=== PATIENT | female | born 2000 | race Caucasian/White ===

== ENCOUNTER 2024-04-19 01:12 | Emergency (ER) | payer OTHER, SELFPAY ==
[2024-04-19 01:36] VITALS: BP 140/82; PULSE 97; RESP 16; TEMP 36.6; O2SAT 99; BMI 35.2
[2024-04-19 02:43] LABS: Basophils Absolute Auto 0.1 X10*3/uL (0.0-0.2); Basophils Percent Auto 0.3 % (0-2); Eosinophils Absolute Auto 0.1 X10*3/uL (0.0-0.4); Eosinophils Percent Auto 0.6 % (0-4); Hematocrit 39.5 % (37.0-47.0); Hemoglobin 13.5 g/dl (12.0-16.0); Imm Gran Abs Auto 0.09 X10*3/uL (0.00-0.03); Imm Gran Pct Auto 0.6 % (0.0-0.4); Lymphocytes Absolute Auto 2.3 X10*3/uL (1.2-4.9); Lymphocytes Percent Auto 14.2 % (20-40); MANUAL DIFF FLAG NO; Mean Corpuscular HGB Conc 34.2 g/dl (31.0-35.0); Mean Corpuscular Hemoglobin 31.5 pg (27.0-33.0); Mean Corpuscular Volume 92.1 fL (80.0-98.0); Mean Platelet Volume 11.1 fL (9.4-12.3); Monocytes Absolute Auto 0.6 X10*3/uL (0.1-1.2); Neutrophils Absolute Auto 12.8 x10*3/uL (2.0-8.3); Neutrophils Percent Auto 80.3 % (45-73); Platelet Count 238 X10*3/uL (160-400); Red Blood Count 4.29 X10*6/uL (4.20-5.50); Red Cell Distribution Width 12.8 % (11.0-16.0); White Blood Count 15.9 X10*3/uL (4.8-10.8)
[2024-04-19 02:44] LABS: Appearance Urine Clear; Color Urine Yellow; Glucose Urine UA Negative (Negative); Leukocyte Esterase Urine Trace (Negative); Nitrite Urine Negative (Negative); PH 6.5 (5.0-9.0); Specific Gravity - Urine 1.025 (1.005-1.025); UMIC TRIGGER UACC YES; Urine Blood Negative (Negative); Urine Ketones Trace mg/dL (Negative); Urine Protein Negative (Neg-Trace)
--- NOTE | 2024-04-19 02:51 | ED.GENADULT ---
HPI - General Adult General Chief complaint: Nausea/Vomiting/Diarrhea Stated complaint: gen med Time Seen by Provider: 04/19/24 01:53 Source: patient Mode of arrival: ambulatory History of Present Illness ED Provider: Dr Trinidad [facility] narrative: This is a 24-year-old female, , 5 months, uncomplicated thus far, presents with having a flush of heat as well as a headache while at work, denies any double vision/blurred vision, denies any nausea or vomiting, denies any right upper quadrant discomfort or urinary symptoms. Denies lower abdominal cramping/loss of fluid/vaginal bleeding and states that she has continued to feel good movement. Related Data Allergies Allergy/AdvReac Type Severity Reaction Status Date / Time No Known Allergies Allergy Verified 04/19/24 01:38 Review of Systems Review of Systems: Pertinent positives and negatives as stated in HPI [facility] Past Medical History Source: nursing notes reviewed Social History Social History Advance Directives: No Advance Directives Information Provided: No Do you have a plan to hurt others: No Plan Physical Exam ED Vital Signs: Vital Signs - 24 hr 04/19/24 01:36 04/19/24 04:29 Temperature 97.9 F Pulse Rate 97 94 Respiratory Rate 16 18 Blood Pressure 140/82 H 99/61 Pulse Oximetry 99 94 Oxygen Delivery Method Room Air Room Air BMI result Body Mass Index 35.2 VITAL SIGNS: Reviewed. GENERAL: Well developed, well nourished, in no acute distress. HEAD: Normocephalic/atraumatic EYES: PERRLA, EOMI EARS: Ext canals without abnormality NOSE: Nares patent bilateral OROPHARYNX: no oral lesions noted, posterior pharynx clear NECK: Supple, no adenopathy LUNGS: Normal breath sounds. No adventitious sounds or accessory muscle use. SpO2<99> CARDIOVASCULAR: Regular rate and rhythm without noted murmurs, no JVD or lower extremity edema. ABDOMEN: Soft, gravid, non-tender, non-distended with bowel sounds. MUSCULOSKELETAL: No tenderness, deformities, or effusions noted on gross inspection. EXTREMITIES: No cyanosis, clubbing or edema. SKIN: Inspection of the skin reveals no rashes NEUROLOGIC: Alert and oriented x 4. Strength and sensation to light touch were grossly intact x 4. Medications Administered Discontinued Medications Generic Name Dose Route Start Last Admin Trade Name Alix PRN Reason Stop Dose Admin Acetaminophen 975 mg 04/19/24 02:02 04/19/24 03:17 Acetaminophen 325 Mg Tablet PO 04/19/24 02:03 975 mg ONCE ONE Administration Medical Decision Making Medical Decision Making [facility] Narrative: 24-year-old female with history and clinical presentation, DDX: low clinical suspicion for HELLP/hypertension of /and suspect instead may be urinary tract infection or viral illness. Patient saw her provider proximally 1 week ago. Will give patient Tylenol for headache. I reviewed all investigations and hematologic indices are significant for leukocytosis as well as a left shift but no anemia or thrombocytopenia. Chemistry indices are negative for RYDER/electrolyte or liver enzyme derangements. Urinalysis is demonstrates trace leukocyte esterase with the presence of bacteria although borderline clean sample. Viral testing is negative for COVID-19/influenza. Suspect the leukocytosis may be secondary to , patient is afebrile, does not have any abdominal pain, no new cough, borderline results for urinalysis but denies any urine symptoms. Viral testing is negative. On re-evaluation patient is feeling much better after the Tylenol, suspect a component of dehydration and instructed patient on increasing oral hydration. Differential Diagnosis Differential Diagnoses: The differential diagnosis associated with the presentation includes Please see the discussion above Admission/Observation Consideration of admission/observation: Escalation of care including admission/observation considered Please see the discussion above Lab Data [facility] Lab Attestation statement: I reviewed the patient's lab results. Please see the discussion above 04/19/24 02:35 04/19/24 02:35 Labs: Lab Results 04/19/24 Range/Units 02:35 WBC 15.9 H (4.8-10.8) X10*3/uL RBC 4.29 (4.20-5.50) X10*6/uL Hgb 13.5 (12.0-16.0) g/dl Hct 39.5 (37.0-47.0) % MCV 92.1 (80.0-98.0) fL MCH 31.5 (27.0-33.0) pg MCHC 34.2 (31.0-35.0) g/dl RDW 12.8 (11.0-16.0) % Plt Count 238 (160-400) X10*3/uL MPV 11.1 (9.4-12.3) fL Immature Gran % (Auto) 0.6 H (0.0-0.4) % Neut % (Auto) 80.3 H (45-73) % Lymph % (Auto) 14.2 L (20-40) % [place] % (Auto) 4.0 (2-11) % Eos % (Auto) 0.6 (0-4) % Baso % (Auto) 0.3 (0-2) % Lymph # (Auto) 2.3 (1.2-4.9) X10*3/uL [place] # (Auto) 0.6 (0.1-1.2) X10*3/uL Eos # (Auto) 0.1 (0.0-0.4) X10*3/uL Baso # (Auto) 0.1 (0.0-0.2) X10*3/uL Abs Immat Gran (auto) 0.09 H (0.00-0.03) X10*3/uL Absolute Neuts (auto) 12.8 H (2.0-8.3) x10*3/uL Absolute Nucleated RBC 0.000 (0.0-0.012) X10*3/uL Nucleated RBC % (auto) 0.0 (0.0-0.2) /100WBC Sodium 136 (135-145) mmol/L Potassium 4.1 (3.3-5.1) mmol/L Chloride 104 (96-108) mmol/L Carbon Dioxide 24 (22-29) mmol/L Anion Gap 12 (12-20) BUN 11 (9-16) mg/dL Creatinine 0.68 (0.5-1.4) mg/dL Estim Creat Clear Calc 122.8 Estimated GFR > 60 Random Glucose 73 (60-115) mg/dL Calcium 9.5 (8.4-10.2) mg/dL Total Bilirubin 0.3 (0.0-1.0) mg/dL AST 13 (5-31) U/L ALT 23 (0-31) U/L Alkaline Phosphatase 81 (39-117) U/L Total Protein 6.9 (6.5-8.0) g/dL Albumin 3.5 (3.5-5.0) g/dL Urine Color Yellow Urine Appearance Clear Urine pH 6.5 (5.0-9.0) Ur Specific [place] 1.025 (1.005-1.025) Urine Protein Negative (Neg-Trace) mg/dL Urine Glucose (UA) Negative (Negative) mg/dL Urine Ketones Trace (Negative) mg/dL Urine Blood Negative (Negative) Urine Nitrite Negative (Negative) Ur Leukocyte Esterase Trace H (Negative) Urine RBC 0-2 (0-2) /HPF Urine WBC 0-5 (0-5) /HPF Ur Squamous Epith Cells 3-5 (0-2) /HPF Urine Bacteria 2+ (None Seen) Hyaline Casts 0-2 (0-2) /LPF COVID-19 (JESSE) Negative (Negative) COVID-19 Clin Com See Note Influenza Type A (GABRIELA) Negative (Negative) Influenza Type B (GABRIELA) Negative (Negative) Influenza A & B Note See Note Chronic Conditions Patient?s care impacted by: Other Critical Care Time Critical Care Time Critical Care Time: Yes Total Critical Care Time: 45 Attestation: I personally attest to this time spent taking care of the patient. Discharge Plan Discharge Clinical Impression: Dizziness, Patient Disposition: Home, Self-Care Instructions: Lightheadedness (ED), (ED) Additional Instructions: Continue to stay well hydrated especially throughout the warmer months that are coming up. Do not hesitate to return to the emergency room for any worsening of your symptoms. Print Language: Kyr[place]z
[2024-04-19 02:58] LABS: COVID-19 Test Negative (Negative); IDNOW Serial# 08D9AD1C; IDNOW Serial# 152EDE1D; Influenza A Negative (Negative); Influenza B2 Negative (Negative)
[2024-04-19 03:00] LABS: Alanine Aminotransferase 23 U/L (0-31); Albumin Level 3.5 g/dL (3.5-5.0); Alkaline Phosphatase 81 U/L (39-117); Anion Gap 12 (12-20); Aspartate Amino Transferase 13 U/L (5-31); Bilirubin Total 0.3 mg/dL (0.0-1.0); Blood Urea Nitrogen 11 mg/dL (9-16); Calcium 9.5 mg/dL (8.4-10.2); Carbon Dioxide 24 mmol/L (22-29); Chloride 104 mmol/L (96-108); Creatinine Clr Calc Pharmacy 122.8; Estimated Glomerular Filt Rate > 60; Glucose Random 73 mg/dL (60-115); Potassium 4.1 mmol/L (3.3-5.1); Sodium 136 mmol/L (135-145); Total Protein 6.9 g/dL (6.5-8.0)
[2024-04-19 03:06] LABS: Bacteria Urine 2+ (None Seen); Hyaline Casts Urine 0-2 /LPF (0-2); RBC Urine 0-2 /HPF (0-2); WBC Urine 0-5 /HPF (0-5)
[2024-04-19] MEDS: Acetaminophen 325 MG TABLET 975 MG PO (03:17)
[2024-04-19 04:29] VITALS: BP 99/61; PULSE 94; RESP 18; O2SAT 94
[2024-04-19 06:34] VITALS: BP 99/61; PULSE 94; RESP 18; TEMP 36.6; O2SAT 94
== END 2024-04-19 06:10 | disposition home or self-care (01) ==
PROVIDERS: Emergency Provider Student in an Organized Health Care Education/Training Program
DX: O26.892 Other specified pregnancy related conditions, second trimester (principal); R42 Dizziness and giddiness; Z3A.00 Weeks of gestation of pregnancy not specified; Z11.52 Encounter for screening for COVID-19
CPT/HCPCS: 80053; 81001; 85025; 87502; 87635; 99283; 99284

== ENCOUNTER 2024-06-23 05:19 | Emergency (ER) | payer OTHER, SELFPAY ==
--- NOTE | ~2024-06-23 | US_ITS ---
EXAMINATION: US ABDOMEN LIMITED CLINICAL INFORMATION: Right upper quadrant pain. COMPARISON: None available. TECHNIQUE: Real-time imaging of the right upper quadrant abdominal viscera. FINDINGS: PANCREAS: The visualized portions of the pancreas are unremarkable. The tail of the pancreas is obscured by bowel gas. LIVER: Normal. The liver is normal in size. The liver contour is normal. Parenchymal echogenicity is normal. No focal hepatic lesion. There is no intrahepatic biliary duct dilatation seen. GALLBLADDER: Normal. The gallbladder is physiologically distended without evidence of stones, sludge, polyps, wall thickening or pericholecystic fluid. COMMON BILE DUCT: Normal in caliber measuring 0.3 cm in diameter. RIGHT KIDNEY: Normal. No hydronephrosis. No renal calculi or focal parenchymal lesions. The kidney measures 12 cm in maximum dimension. FREE FLUID: None. US/US abdomen limited IMPRESSION: Unremarkable right upper quadrant ultrasound.
[2024-06-23 05:23] VITALS: BP 124/71; PULSE 96; RESP 16; TEMP 36.5; O2SAT 98; BMI 44.4
--- NOTE | 2024-06-23 05:50 | ED.ABDPAIN ---
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 noticed cramping pain in upper abdomen which is diffuse more on the right side intermittent lasting for 2- 3 minutes coming almost every 10-15 minutes no vaginal bleed or discharge also has some nausea no urinary symptoms Related Data Allergies Allergy/AdvReac Type Severity Reaction Status Date / Time No Known Allergies Allergy Verified 06/23/24 05:27 Review of Systems Review of Systems Yes all other systems are reviewed and are negative [facility] Social History Social History Alcohol intake: never Smoked in Last 30 Days: No Use of substances other than those prescribed or required for medical reasons: No Advance Directives: No Advance Directives Information Provided: Yes Do you have a plan to hurt others: No Plan Patient : Yes Physical Exam ED Vital Signs: Vital Signs - 24 hr 06/23/24 05:23 06/23/24 06:20 06/23/24 07:19 Temperature 97.7 F 97.6 F Pulse Rate 96 85 88 Respiratory Rate 16 20 18 Blood Pressure 124/71 113/72 119/67 Pulse Oximetry 98 95 98 Oxygen Delivery Method Room Air Room Air Room Air BMI result Body Mass Index 44.4 Appearance: Alert. Oriented X3. No acute distress. Eyes: PERRLA, No Nystagmus ENT: Pharynx normal. Oral Mucosa moist Neck: Normal inspection. Neck supple. CVS: Normal heart rate and rhythm. Pulses normal. Respiratory: No respiratory distress. Equal air entry bilateral, no wheezing/rales/rhonchi Abdomen: Soft gravid uterus right upper quadrant tenderness+ with slight guarding no rebound tenderness Bowel sounds are present, , no CVA tenderness heart tone 152 beats per minute Skin: Skin warm and dry. Normal skin color. Normal skin turgor. Extremities: No lower extremity edema. No calf tenderness Neuro: Oriented X 3. 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 Bedside ultrasound was done which showed IUP with good movements . Lab Data 06/23/24 06:42 06/23/24 06:42 Labs: Lab Results 06/23/24 Range/Units 06:42 WBC 13.0 H (4.8-10.8) X10*3/uL RBC 4.25 (4.20-5.50) X10*6/uL Hgb 13.8 (12.0-16.0) g/dl Hct 39.4 (37.0-47.0) % MCV 92.7 (80.0-98.0) fL MCH 32.5 (27.0-33.0) pg MCHC 35.0 (31.0-35.0) g/dl RDW 12.8 (11.0-16.0) % Plt Count 214 (160-400) X10*3/uL MPV 11.1 (9.4-12.3) fL Immature Gran % (Auto) 0.8 H (0.0-0.4) % Neut % (Auto) 75.8 H (45-73) % Lymph % (Auto) 17.3 L (20-40) % [place] % (Auto) 4.8 (2-11) % Eos % (Auto) 1.0 (0-4) % Baso % (Auto) 0.3 (0-2) % Lymph # (Auto) 2.3 (1.2-4.9) X10*3/uL [place] # (Auto) 0.6 (0.1-1.2) X10*3/uL Eos # (Auto) 0.1 (0.0-0.4) X10*3/uL Baso # (Auto) 0.0 (0.0-0.2) X10*3/uL Abs Immat Gran (auto) 0.11 H (0.00-0.03) X10*3/uL Absolute Neuts (auto) 9.9 H (2.0-8.3) x10*3/uL Absolute Nucleated RBC 0.000 (0.0-0.012) X10*3/uL Nucleated RBC % (auto) 0.0 (0.0-0.2) /100WBC Sodium 138 (135-145) mmol/L Potassium 4.2 (3.3-5.1) mmol/L Chloride 110 H (96-108) mmol/L Carbon Dioxide 16 L (22-29) mmol/L Anion Gap 16 (12-20) BUN 7 L (9-16) mg/dL Creatinine 0.59 (0.5-1.4) mg/dL Estim Creat Clear Calc 168.4 Estimated GFR > 60 Random Glucose 76 (60-115) mg/dL Calcium 9.2 (8.4-10.2) mg/dL Total Bilirubin 0.2 (0.0-1.0) mg/dL AST 15 (5-31) U/L ALT 13 (0-31) U/L Alkaline Phosphatase 112 (39-117) U/L Total Protein 6.8 (6.5-8.0) g/dL Albumin 3.2 L (3.5-5.0) g/dL Discharge Plan Discharge Clinical Impression: Third trimester Print Language: [place] Citizen
--- NOTE | 2024-06-23 05:58 | PC.NURSE ---
pt off unit in U/S
[2024-06-23 06:20] VITALS: BP 113/72; PULSE 85; RESP 20; TEMP 36.4; O2SAT 95
[2024-06-23 06:47] LABS: MANUAL DIFF FLAG NO
[2024-06-23 06:58] LABS: Basophils Percent Auto 0.3 % (0-2); Eosinophils Absolute Auto 0.1 X10*3/uL (0.0-0.4); Hematocrit 39.4 % (37.0-47.0); Hemoglobin 13.8 g/dl (12.0-16.0); Imm Gran Abs Auto 0.11 X10*3/uL (0.00-0.03); Imm Gran Pct Auto 0.8 % (0.0-0.4); Lymphocytes Absolute Auto 2.3 X10*3/uL (1.2-4.9); Lymphocytes Percent Auto 17.3 % (20-40); Mean Corpuscular Hemoglobin 32.5 pg (27.0-33.0); Mean Corpuscular Volume 92.7 fL (80.0-98.0); Mean Platelet Volume 11.1 fL (9.4-12.3); Monocytes Absolute Auto 0.6 X10*3/uL (0.1-1.2); Monocytes Percent Auto 4.8 % (2-11); Neutrophils Absolute Auto 9.9 x10*3/uL (2.0-8.3); Neutrophils Percent Auto 75.8 % (45-73); Platelet Count 214 X10*3/uL (160-400); Red Blood Count 4.25 X10*6/uL (4.20-5.50); Red Cell Distribution Width 12.8 % (11.0-16.0)
[2024-06-23 07:06] LABS: Alanine Aminotransferase 13 U/L (0-31); Albumin Level 3.2 g/dL (3.5-5.0); Alkaline Phosphatase 112 U/L (39-117); Anion Gap 16 (12-20); Aspartate Amino Transferase 15 U/L (5-31); Bilirubin Total 0.2 mg/dL (0.0-1.0); Blood Urea Nitrogen 7 mg/dL (9-16); Calcium 9.2 mg/dL (8.4-10.2); Carbon Dioxide 16 mmol/L (22-29); Chloride 110 mmol/L (96-108); Creatinine Clr Calc Pharmacy 168.4; Estimated Glomerular Filt Rate > 60; Glucose Random 76 mg/dL (60-115); Potassium 4.2 mmol/L (3.3-5.1); Sodium 138 mmol/L (135-145); Total Protein 6.8 g/dL (6.5-8.0)
[2024-06-23 07:19] VITALS: BP 119/67; PULSE 88; RESP 18; O2SAT 98
[2024-06-23] MEDS: 0.9 % Sodium Chloride 1,000 ML 999 ML IV (07:26)
[2024-06-23] MEDS: ondansetron HCL 4 MG/2 ML VIAL IVPUSH (07:45)
[2024-06-23 07:59] LABS: Appearance Urine Clear; Color Urine Yellow; Glucose Urine UA Negative (Negative); Leukocyte Esterase Urine Negative (Negative); Nitrite Urine Negative (Negative); Specific Gravity - Urine >= 1.030 (1.005-1.025); Urine Blood Negative (Negative); Urine Ketones 15 mg/dL (Negative); Urine Protein Trace mg/dL (Neg-Trace)
[2024-06-23 09:10] VITALS: BP 108/61; PULSE 90; RESP 18; TEMP 36.5; O2SAT 98
== END 2024-06-23 09:12 | disposition short-term general hospital (02) ==
PROVIDERS: Internal Medicine; Emergency Provider Emergency Medicine
DX: O47.03 False labor before 37 completed weeks of gestation, third trimester (principal); Z3A.30 30 weeks gestation of pregnancy
CPT/HCPCS: 36415; 76705; 80053; 81003; 85025; 96374; 99284; 99285; J2405